=== PATIENT | male | born 1980 | race Caucasian/White ===

== ENCOUNTER 2021-09-07 11:33 | Emergency (ER) | payer OTHER ==
[~2021-09-07] VITALS: Ht 177.8 cm; Wt 96.6 kg
[2021-09-07 11:44] VITALS: BP 133/72
--- NOTE | 2021-09-07 11:44 | NUR ---
c/o right hand pain got stung by sting ray while diving
--- NOTE | 2021-09-07 12:49 | NUR ---
PT SEEN BY DR. DORSEY
[2021-09-07] MEDS ORDERED: FAMOTIDINE (20 MG) 20 MG TABLET ONE (12:51)
[2021-09-07] MEDS ORDERED: ONDANSETRON 4 MG TAB.RAPDIS ONE (12:52)
[2021-09-07] MEDS ORDERED: FAMOTIDINE (20 MG) 20 MG TABLET PO ONE (13:00)
[2021-09-07] MEDS ORDERED: ONDANSETRON 4 MG TAB.RAPDIS SL ONE (13:00)
[2021-09-07 13:04] LABS: BASOPHILS % (AUTO) 0.8 % (0.0-2.0); EOSINOPHILS % (AUTO) 2.8 % (0.0-6.0); HEMATOCRIT 45 % (39-51); HEMOGLOBIN 15.6 g/dL (13.5-17.5); LYMPHOCYTES # (AUTO) 1.6 K/uL (0.8-4.8); LYMPHOCYTES % (AUTO) 33.4 % (20.0-44.0); MEAN CORPUSCULAR HGB CONC 35 g/dl (31.0-36.0); MEAN CORPUSCULAR VOLUME 91 fL (80-96); MONOCYTES # (AUTO) 0.7 K/uL (0.1-1.30); MONOCYTES % (AUTO) 14.3 % (2.0-12.0); NEUTROPHILS # (AUTO) 2.3 K/uL (1.8-8.9); NEUTROPHILS % (AUTO) 48.7 % (43.0-81.0); PLATELET COUNT (AUTO) 149 K/uL (150-450); RED BLOOD CELL COUNT(AUTO) 4.91 MIL/uL (4.5-6.0); WHITE BLOOD COUNT (AUTO) 4.7 K/uL (4.3-11.0)
[2021-09-07 13:17] LABS: ALBUMIN 4.2 g/dL (3.4-5.0); BILIRUBIN,DIRECT 0.3 mg/dL (0.0-0.2); BILIRUBIN,TOTAL 1.5 mg/dL (0.2-1.0); CALCIUM, SERUM 8.5 mg/dL (8.5-10.1); CREATININE 0.8 mg/dL (0.6-1.3); TOTAL PROTEIN, SERUM 7.3 g/dL (6.4-8.2)
--- NOTE | 2021-09-07 13:24 | NUR ---
X RAY AT PTS SIDE
[2021-09-07] MEDS ORDERED: ONDA4TAB11 PO (14:41)
[2021-09-07] MEDS ORDERED: LEVO750T46 PO (14:41)
--- NOTE | 2021-09-07 15:04 | NUR ---
Patient discharged to home in stable condition. Written and verbal after care instructions given. Patient verbalizes understanding of instruction.
== END 2021-09-07 15:04 | disposition home or self-care (01) ==
LOC: ER 11:37
DX: S61.411A Laceration without foreign body of right hand, initial encounter (principal); R11.2 Nausea with vomiting, unspecified; J45.909 Unspecified asthma, uncomplicated; Z79.899 Other long term (current) drug therapy; W57.XXXA Bitten or stung by nonvenomous insect and other nonvenomous arthropods, initial encounter; Y93.89 Activity, other specified; Y99.8 Other external cause status
CPT/HCPCS: 36415; 73130; 80048; 80076; 83690; 85025; 99284; Q0162

== ENCOUNTER 2023-03-06 15:17 | Emergency (ER) | payer MEDICAID, OTHER ==
[~2023-03-06 15:17] MED LIST: LEVO750T46 PO; ONDA4TAB11 PO
== END 2023-03-06 16:03 | disposition left against medical advice (07) ==
LOC: ER 15:20
DX: Z04.1 Encounter for examination and observation following transport accident (principal); Z53.21 Procedure and treatment not carried out due to patient leaving prior to being seen by health care provider; V89.2XXA Person injured in unspecified motor-vehicle accident, traffic, initial encounter; Y93.89 Activity, other specified; Y92.89 Other specified places as the place of occurrence of the external cause; Y99.8 Other external cause status

== ENCOUNTER 2023-05-11 18:46 | Emergency (ER) | payer MEDICAID ==
[~2023-05-11] VITALS: Ht 175.3 cm; Wt 81.6 kg
[2023-05-11 21:02] VITALS: BP 121/82; TEMP 98.5; O2SAT 97
== END 2023-05-11 21:03 | disposition home or self-care (01) ==
LOC: ER 18:50
DX: M54.50 Low back pain, unspecified (principal); J45.909 Unspecified asthma, uncomplicated; G89.29 Other chronic pain
CPT/HCPCS: 72100-TC

== ENCOUNTER 2023-08-22 13:20 | Emergency (ER) | payer MEDICAID ==
[~2023-08-22] VITALS: Ht 172.7 cm; Wt 82.6 kg
[2023-08-22 14:00] LABS: BASOPHILS # (AUTO) 0.1 K/uL (0.0-0.2); BASOPHILS % (AUTO) 1.1 % (0.0-2.0); EOSINOPHILS # (AUTO) 0.4 K/uL (0.0-0.7); EOSINOPHILS % (AUTO) 5.8 % (0.0-6.0); HEMATOCRIT 47 % (39-51); HEMOGLOBIN 16.4 g/dL (13.5-17.5); LYMPHOCYTES # (AUTO) 1.7 K/uL (0.8-4.8); LYMPHOCYTES % (AUTO) 27.6 % (20.0-44.0); MEAN CORPUSCULAR HEMOGLOBIN 32 PG (26.0-33.0); MEAN CORPUSCULAR HGB CONC 35 g/dl (31.0-36.0); MEAN CORPUSCULAR VOLUME 92 fL (80-96); MONOCYTES # (AUTO) 0.7 K/uL (0.1-1.30); MONOCYTES % (AUTO) 11.3 % (2.0-12.0); NEUTROPHILS # (AUTO) 3.3 K/uL (1.8-8.9); NEUTROPHILS % (AUTO) 54.2 % (43.0-81.0); PLATELET COUNT (AUTO) 170 K/uL (150-450); RED BLOOD CELL COUNT(AUTO) 5.15 MIL/uL (4.5-6.0); RED CELL DISTRIBUTION WIDTH 12.6 % (11.5-15.0); WHITE BLOOD COUNT (AUTO) 6.1 K/uL (4.3-11.0)
[2023-08-22 14:11] LABS: CALCIUM, SERUM 9.4 mg/dL (8.5-10.1); CARBON DIOXIDE 23 mmol/L (21-32); CHLORIDE 103 mmol/L (98-107); CREATININE 0.8 mg/dL (0.6-1.3); GLUCOSE 103 mg/dL (74-106); POTASSIUM 4.1 mmol/L (3.5-5.1); SODIUM SERUM 140 mmol/L (136-145); UREA NITROGEN, BLOOD 11 mg/dL (7-18)
[2023-08-22 14:24] LABS: NT-PRO BNP 19 pg/mL (0-125)
[2023-08-22 17:29] VITALS: BP 123/99; TEMP 98.8; O2SAT 97
== END 2023-08-22 17:20 | disposition home or self-care (01) ==
LOC: ER 13:40
DX: R06.02 Shortness of breath (principal); J45.909 Unspecified asthma, uncomplicated; Z60.2 Problems related to living alone
CPT/HCPCS: 36415; 71045-TC; 80048-TC; 83880; 84484-TC; 85025-TC

== ENCOUNTER 2024-01-12 01:54 | Emergency (ER) | payer MEDICAID ==
[~2024-01-12] VITALS: Ht 172.7 cm; Wt 95.7 kg
[2024-01-12 03:18] LABS: ABG BASE EXCESS -2.4 mmol/L (-2.0-3.0); ABG OXYGEN SATURATION 94.6 % (94.0-98.0); ABG PCO2 33.8 mmHg (35.0-48.0); ABG PH 7.416 (7.350-7.450); ABG PO2 73.1 mmHg (83.0-108.0); ABG TOTAL HEMOGLOBIN 16.2 G/dL (13.5-17.5); COHb 0.3 % (0.5-1.5); MetHb 0.2 % (0.0-1.5); O2Hb 94.1 % (94.0-97.0); SITE, ABG RIGHT RADIAL
[2024-01-12 03:39] VITALS: BP 130/88; TEMP 98.9; O2SAT 99
== END 2024-01-12 03:40 | disposition home or self-care (01) ==
LOC: ER 02:01
DX: T59.811A Toxic effect of smoke, accidental (unintentional), initial encounter (principal); R42 Dizziness and giddiness; J45.909 Unspecified asthma, uncomplicated; R06.02 Shortness of breath; Z60.2 Problems related to living alone; Y92.89 Other specified places as the place of occurrence of the external cause
CPT/HCPCS: 36600; 71045-TC; 82803-TC

== ENCOUNTER 2025-02-12 10:09 | Emergency (ER) | payer MEDICAID, OTHER ==
[~2025-02-12] VITALS: Ht 177.8 cm; Wt 103.4 kg
[2025-02-12 10:44] LABS: FRACTIONATED INSPIRED OXYGEN-V 21.0 %; SITE, VBG VBG - N/A; VBG BASE EXCESS 0.0 mmol/L (-2.0-3.0); VBG HCO3 24.8 mmol/L (22.0-29.0); VBG MetHb 0.4 % (0.5-1.5); VBG OXYGEN SATURATION 47.3 % (60.0-85.0); VBG PCO2 41.0 mmHg (38.0-54.0); VBG PH 7.400 (7.320-7.430); VBG PO2 24.5 mmHg (23.0-48.0); VBG TOTAL HEMOGLOBIN 16.7 G/dL (13.5-17.5)
[2025-02-12] MEDS ORDERED: ALBU18HF2 INH (11:01)
[2025-02-12 11:25] VITALS: BP 132/95; TEMP 98; O2SAT 98
== END 2025-02-12 11:26 | disposition home or self-care (01) ==
LOC: ER 10:16
DX: R06.02 Shortness of breath (principal); J45.909 Unspecified asthma, uncomplicated; D59.9 Acquired hemolytic anemia, unspecified
CPT/HCPCS: 82803-TC